=== PATIENT | male | born 1940 | race Caucasian/White ===

== ENCOUNTER 2020-05-14 11:36 | Inpatient (IN) | payer MEDICARE, OTHER ==
[2020-05-14 15:40] LABS: ALBUMIN 3.3 g/dL (3.4-5.0); BILIRUBIN - TOTAL 0.9 mg/dL (0.2-1.0); BUN/CREAT RATIO (CALC) 17.2 RATIO; CREATININE 0.87 mg/dL (0.67-1.17); GLOBULIN (CALCULATION) 4.8 g/dL; POTASSIUM 4.1 mmol/L (3.5-5.1); TOTAL PROTEIN 8.1 g/dL (6.4-8.2)
[2020-05-14] MEDS ORDERED: PROSCAR5 MG PO (16:10)
[2020-05-14] MEDS ORDERED: CARTIA XT240 MG PO (16:11)
[2020-05-14] MEDS ORDERED: ZOLOFT100 MG PO (16:11)
[2020-05-14] MEDS ORDERED: LASIX40 MG PO (16:12)
[2020-05-14] MEDS ORDERED: K-DUR20 MEQ PO (16:12)
[2020-05-14] MEDS ORDERED: ASPIRIN EC81 MG PO (16:13)
[2020-05-14] MEDS ORDERED: METFORMIN HCL500 MG PO (16:15)
[2020-05-14] MEDS ORDERED: FLOMAX0.4 MG PO (16:16)
[2020-05-14] MEDS ORDERED: PROTONIX40 MG PO (16:18)
[2020-05-14] MEDS ORDERED: MAG-OXIDE 400M400 MG PO (16:19)
[2020-05-14] MEDS ORDERED: VITAMIN E400 UNIT PO (16:20)
[2020-05-14] MEDS ORDERED: VITAMIN B-121000 MC1 PO (16:20)
[2020-05-14] MEDS ORDERED: VENTOLIN (2.5 MG/3 M INH (16:21)
[2020-05-14] MEDS ORDERED: TEMAZEPAM30 MG PO (16:23)
[2020-05-14] MEDS ORDERED: NOVOLOG VI100 UNIT/1 SC (16:49)
[2020-05-14] MEDS ORDERED: UROCIT-K10 MEQ PO (16:52)
[2020-05-16 08:11] LABS: BASOPHIL 0.2 % (0-2); EOSINOPHIL 0.2 % (0-7); HCT 36.3 % (42.0-52.0); HGB 11.5 g/dl (13.2-18.0); LYMPHOCYTE 15.6 % (15-48); MCH 31.3 pg (25.0-31.0); MCHC 31.7 g/dL (32.0-36.0); MCV 98.9 fL (78.0-100.0); MONOCYTE 9.9 % (0-12); NEUTROPHIL 73.3 % (41-80); NRBC 0; PLT 309 K/uL (150-400); RBC 3.67 M/uL (4.70-6.00); RDW 15.9 % (11.5-14.0); WBC 9.1 K/uL (4.0-10.5)
[2020-05-16 08:33] LABS: BUN/CREAT RATIO (CALC) 23.2 RATIO; CREATININE 0.82 mg/dL (0.67-1.17); POTASSIUM 3.6 mmol/L (3.5-5.1)
[2020-05-17 01:37] LABS: BASOPHIL 0.2 % (0-2); EOSINOPHIL 0 % (0-7); HCT 36.5 % (42.0-52.0); HGB 11.6 g/dl (13.2-18.0); LYMPHOCYTE 14.7 % (15-48); MCH 31.1 pg (25.0-31.0); MCHC 31.8 g/dL (32.0-36.0); MCV 97.9 fL (78.0-100.0); MONOCYTE 10.6 % (0-12); NEUTROPHIL 72.7 % (41-80); NRBC 0; PLT 350 K/uL (150-400); RBC 3.73 M/uL (4.70-6.00); RDW 15.9 % (11.5-14.0)
[2020-05-17 01:52] LABS: BUN/CREAT RATIO (CALC) 21.5 RATIO; CREATININE 1.3 mg/dL (0.67-1.17); MAGNESIUM 1.8 mg/dL (1.8-2.4)
[2020-05-18 04:42] LABS: BASOPHIL 0.4 % (0-2); EOSINOPHIL 0.2 % (0-7); HCT 40.1 % (42.0-52.0); HGB 12.8 g/dl (13.2-18.0); MCH 31.2 pg (25.0-31.0); MCHC 31.9 g/dL (32.0-36.0); MCV 97.8 fL (78.0-100.0); MONOCYTE 12.3 % (0-12); MPV 8.9 fL (6.0-9.5); NEUTROPHIL 67.7 % (41-80); NRBC 0; PLT 385 K/uL (150-400); RDW 15.7 % (11.5-14.0); WBC 9.7 K/uL (4.0-10.5)
[2020-05-18 04:58] LABS: BUN/CREAT RATIO (CALC) 27.8 RATIO; CREATININE 1.15 mg/dL (0.67-1.17); POTASSIUM 3.8 mmol/L (3.5-5.1)
--- NOTE | 2020-05-18 15:26 | NUR ---
05/18/20 Mr. Syed lives at home with his spouse. He is followed by [facility]. He has 02, lift chair, electric w/c, rollator, and [id number] seat. M/M Yahaira discussed placement vs returning home with HH. They elected to go to [facility] for short term igor. [facility] accepted patient today. Report given to MS RADHA Bautista - Please call report to: [phone] and fax DS to: [phone]. Spouse will bring portable 02 and transport.
[2020-05-18] MEDS ORDERED: HUMULIN R100 UNIT/2 SC (15:36)
[2020-05-18] MEDS ORDERED: PROVENTIL HFA6.7 GM INH (15:36)
[2020-05-18] MEDS ORDERED: ATROVENT HFA12.9 GM INH (15:36)
[2020-05-18] MEDS ORDERED: MUCINEX1200 MG PO (15:50)
[2020-05-18] MEDS ORDERED: DECADRON6 MG PO (15:50)
[2020-05-18] MEDS ORDERED: CEFDINIR300 MG PO (15:50)
[2020-05-18] MEDS ORDERED: LASIX40 MG PO (15:53)
[2020-05-18] MEDS ORDERED: DULERA 200 MCG8.8 GM INH (16:17)
[2020-05-18] MEDS ORDERED: DECADRON4 MG PO (16:17)
== END 2020-05-18 18:25 | DRG 177 ==
LOC: FER 11:36 → FMS 14:39
PROVIDERS: Internal Medicine; ADMIT Internal Medicine
PROC: 8E0ZXY6 Isolation (ICD-10-PCS; principal; 2020-05-14)
DX: U07.1 COVID-19 (principal); J12.82 Pneumonia due to coronavirus disease 2019; I50.31 Acute diastolic (congestive) heart failure; J96.21 Acute and chronic respiratory failure with hypoxia; J18.9 Pneumonia, unspecified organism; J44.0 Chronic obstructive pulmonary disease with (acute) lower respiratory infection; I48.20 Chronic atrial fibrillation, unspecified; G47.33 Obstructive sleep apnea (adult) (pediatric); M19.90 Unspecified osteoarthritis, unspecified site; G89.29 Other chronic pain; M54.9 Dorsalgia, unspecified; N40.0 Benign prostatic hyperplasia without lower urinary tract symptoms; Z85.528 Personal history of other malignant neoplasm of kidney; E78.5 Hyperlipidemia, unspecified; I11.0 Hypertensive heart disease with heart failure; E11.40 Type 2 diabetes mellitus with diabetic neuropathy, unspecified; E66.01 Morbid (severe) obesity due to excess calories; Z95.5 Presence of coronary angioplasty implant and graft; Z96.653 Presence of artificial knee joint, bilateral; Z87.891 Personal history of nicotine dependence; Z88.0 Allergy status to penicillin; Z79.899 Other long term (current) drug therapy; Z79.82 Long term (current) use of aspirin; Z79.84 Long term (current) use of oral hypoglycemic drugs; Z88.8 Allergy status to other drugs, medicaments and biological substances
CPT/HCPCS: 36415; 71045; 80048; 80053; 80202; 82962; 83735; 83880; 85025; 87040; 93971; 94640; 94760; 97110; 97116; 97162; 97166; 97530-GP; 97535; J0692; J1650; J1940; J7512; U0002

== ENCOUNTER 2020-06-01 12:29 | Inpatient (IN) | payer MEDICARE, OTHER ==
[~2020-06-01 12:29] MED LIST: ASPIRIN EC81 MG PO; ATROVENT HFA12.9 GM INH; CARTIA XT240 MG PO; CEFDINIR300 MG PO; DECADRON4 MG PO; DECADRON6 MG PO; DULERA 200 MCG8.8 GM INH; FLOMAX0.4 MG PO; HUMULIN R100 UNIT/2 SC; K-DUR20 MEQ PO; LASIX40 MG PO; MAG-OXIDE 400M400 MG PO; METFORMIN HCL500 MG PO; MUCINEX1200 MG PO; NOVOLOG VI100 UNIT/1 SC; PROSCAR5 MG PO; PROTONIX40 MG PO; PROVENTIL HFA6.7 GM INH; TEMAZEPAM30 MG PO; UROCIT-K10 MEQ PO; VENTOLIN (2.5 MG/3 M INH; VITAMIN B-121000 MC1 PO; VITAMIN E400 UNIT PO; ZOLOFT100 MG PO
[2020-06-01 13:27] LABS: BASOPHIL 0.3 % (0-2); EOSINOPHIL 1.3 % (0-7); HCT 36.3 % (42.0-52.0); HGB 11.5 g/dl (13.2-18.0); LYMPHOCYTE 9.1 % (15-48); MCH 31.1 pg (25.0-31.0); MCHC 31.7 g/dL (32.0-36.0); MCV 98.1 fL (78.0-100.0); MONOCYTE 8.6 % (0-12); MPV 9.9 fL (6.0-9.5); NEUTROPHIL 79.5 % (41-80); NRBC 0; PLT 199 K/uL (150-400); RDW 15.6 % (11.5-14.0); WBC 11.5 K/uL (4.0-10.5)
[2020-06-01 13:45] LABS: ALBUMIN 2.8 g/dL (3.4-5.0); BILIRUBIN - TOTAL 0.7 mg/dL (0.2-1.0); BUN/CREAT RATIO (CALC) 20.9 RATIO; CREATININE 0.91 mg/dL (0.67-1.17); GLOBULIN (CALCULATION) 4.1 g/dL; POTASSIUM 4.3 mmol/L (3.5-5.1); TOTAL PROTEIN 6.9 g/dL (6.4-8.2)
[2020-06-01 13:53] LABS: CORONAVIRUS 2019 SARS-COV-2 POSITIVE (NEGATIVE)
[2020-06-01 14:38] LABS: INFLUENZA A NAA NEGATIVE (NEGATIVE)
[2020-06-01 17:35] LABS: LACTIC ACID 0.8 mmol/L (0.4-1.9)
[2020-06-01 18:42] LABS: BILIRUBIN NEGATIVE (NEGATIVE); BLOOD NEGATIVE Ery/uL (NEGATIVE); CLARITY CLEAR (CLEAR); COLOR YELLOW (YELLOW); GLUCOSE (U) NORMAL (NORMAL); LEUKOCYTES NEGATIVE Leu/uL (NEGATIVE); NITRITE NEGATIVE (NEGATIVE); PROTEIN NEGATIVE (NEGATIVE); SPECIFIC GRAVITY 1.015 (1.001-1.030); UROBILINOGEN 0.2 mg/dL (0.2-1.0)
[2020-06-01 18:58] LABS: URINARY WBC RARE
[2020-06-01 18:59] LABS: SQUAMOUS EPITHELIAL CELLS RARE
[2020-06-01] MEDS ORDERED: BUSPIRONE HCL15 MG PO (21:02)
[2020-06-01] MEDS ORDERED: BACLOFEN 10MG T10 MG PO (21:03)
[2020-06-01] MEDS ORDERED: PERCOCET 10-321 EACH PO (21:04)
[2020-06-01] MEDS ORDERED: TEMAZEPAM30 MG PO (21:05)
[2020-06-01] MEDS ORDERED: VENTOLIN HFA IN18 GM INH (21:05)
[2020-06-01] MEDS ORDERED: ZOLOFT100 MG PO (21:07)
[2020-06-01] MEDS ORDERED: VITAMIN E400 UNI4 PO (21:07)
[2020-06-01] MEDS ORDERED: ASPIRIN EC81 MG PO (21:08)
[2020-06-01] MEDS ORDERED: PROSCAR5 MG PO (21:08)
[2020-06-01] MEDS ORDERED: PROTONIX 40MG T40 MG PO (21:09)
[2020-06-01] MEDS ORDERED: K-DUR20 MEQ PO (21:11)
[2020-06-01] MEDS ORDERED: LASIX40 MG PO (21:11)
[2020-06-01] MEDS ORDERED: FLOMAX0.4 MG PO (21:12)
[2020-06-01] MEDS ORDERED: PRADAXA150 MG PO (21:12)
[2020-06-01] MEDS ORDERED: METFORMIN HCL500 MG PO (21:14)
[2020-06-01] MEDS ORDERED: CARTIA XT240 MG PO (21:16)
[2020-06-01 21:46] LABS: BASOPHIL 0.2 % (0-2); EOSINOPHIL 0.2 % (0-7); HCT 37.7 % (42.0-52.0); LYMPHOCYTE 4.3 % (15-48); MCH 31.3 pg (25.0-31.0); MCHC 31.8 g/dL (32.0-36.0); MCV 98.2 fL (78.0-100.0); MONOCYTE 1.6 % (0-12); MPV 9.9 fL (6.0-9.5); NEUTROPHIL 92.3 % (41-80); NRBC 0; PLT 214 K/uL (150-400); RBC 3.84 M/uL (4.70-6.00); RDW 15.6 % (11.5-14.0); WBC 12.9 K/uL (4.0-10.5)
[2020-06-01 22:03] LABS: ALBUMIN 2.9 g/dL (3.4-5.0); BILIRUBIN - TOTAL 0.7 mg/dL (0.2-1.0); BUN/CREAT RATIO (CALC) 19.5 RATIO; CREATININE 1.18 mg/dL (0.67-1.17); GLOBULIN (CALCULATION) 4.1 g/dL; POTASSIUM 5.2 mmol/L (3.5-5.1)
--- NOTE | 2020-06-01 22:22 | NUR ---
PT ADJITATED AT THIS TIME, CALLING OUT TO NURSES STATION BERRY GROWER ANSWERS PHONE AND PATIENT YELLING IN HER EAR WANTING TO KNOW HER NAME, PT REMOVING MASK TO TALK AND OXYGEN SATS DROP, RT WENT IN TO ASSIST WITH PT DAUGHTER WORKS ON [employer] AND CAME TO ASSIST AND TALK TO PATIENT. WILL CONTINUE TO MONITOR, PT SATS AND HR STABLE AT THIS TIME
[2020-06-02 04:32] LABS: BASOPHIL 0.3 % (0-2); EOSINOPHIL 0.3 % (0-7); HCT 34.2 % (42.0-52.0); HGB 10.9 g/dl (13.2-18.0); LYMPHOCYTE 9.9 % (15-48); MCH 31.1 pg (25.0-31.0); MCHC 31.9 g/dL (32.0-36.0); MCV 97.4 fL (78.0-100.0); MONOCYTE 2.3 % (0-12); NEUTROPHIL 85.5 % (41-80); NRBC 0; PLT 189 K/uL (150-400); RBC 3.51 M/uL (4.70-6.00); RDW 15.3 % (11.5-14.0)
[2020-06-02 05:11] LABS: IRON % SATURATION 10.8 %SAT (20-50)
[2020-06-02 05:38] LABS: BUN 23 mg/dL (7-18); BUN/CREAT RATIO (CALC) 20.5 RATIO; CHLORIDE 101 mmol/L (98-107); CO2 (BICARBONATE) 28 mmol/L (21-32); CREATININE 1.12 mg/dL (0.67-1.17); GLUCOSE 214 mg/dL (74-106); MAGNESIUM 2.4 mg/dL (1.8-2.4); PHOSPHORUS 3.9 mg/dL (2.6-4.7); POTASSIUM 3.9 mmol/L (3.5-5.1)
[2020-06-02 05:39] LABS: C-REACTIVE PROTEIN > 18.00 mg/dL (<=0.90)
--- NOTE | 2020-06-02 14:26 | NUR ---
06/02 Mr. Syed lives with his spouse. [facility] was notified of admission and transfer to [facility]. - Mr. Syed has home 02, lift chair, electric wc, rollator, and [id number].
== END 2020-06-02 14:30 | disposition other institution (70) | DRG 871 ==
LOC: FER 12:29 → FTCU 16:27
PROVIDERS: Emergency Medicine; ADMIT Internal Medicine
PROC: 8E0ZXY6 Isolation (ICD-10-PCS; principal; 2020-06-01)
PROC: XW033E5 Introduction of Remdesivir Anti-infective into Peripheral Vein, Percutaneous Approach, New Technology Group 5 (ICD-10-PCS; 2020-06-01)
PROC: 3E0333Z Introduction of Anti-inflammatory into Peripheral Vein, Percutaneous Approach (ICD-10-PCS; 2020-06-01)
DX: A41.89 Other specified sepsis (principal); U07.1 COVID-19; J12.82 Pneumonia due to coronavirus disease 2019; J96.21 Acute and chronic respiratory failure with hypoxia; I21.A1 Myocardial infarction type 2; I50.33 Acute on chronic diastolic (congestive) heart failure; I48.20 Chronic atrial fibrillation, unspecified; G47.33 Obstructive sleep apnea (adult) (pediatric); D50.9 Iron deficiency anemia, unspecified; N40.0 Benign prostatic hyperplasia without lower urinary tract symptoms; K21.9 Gastro-esophageal reflux disease without esophagitis; F32.9 Major depressive disorder, single episode, unspecified; I27.20 Pulmonary hypertension, unspecified; J84.10 Pulmonary fibrosis, unspecified; J43.9 Emphysema, unspecified; E78.5 Hyperlipidemia, unspecified; E11.42 Type 2 diabetes mellitus with diabetic polyneuropathy; Z96.653 Presence of artificial knee joint, bilateral; M19.90 Unspecified osteoarthritis, unspecified site; I25.10 Atherosclerotic heart disease of native coronary artery without angina pectoris; Z95.5 Presence of coronary angioplasty implant and graft; Z88.0 Allergy status to penicillin; Z98.890 Other specified postprocedural states; Z85.528 Personal history of other malignant neoplasm of kidney; Z87.891 Personal history of nicotine dependence
CPT/HCPCS: 36415; 36600; 71045; 71275; 80048; 80053; 81001; 82607; 82803; 83540; 83550; 83605; 83735; 83880; 84100; 84145; 84484; 85025; 85379; 86140; 87040; 93005; 94010; 94640; 94667; 94668; C9399; J1100; J1650; J2916; J3370; J3490; J7030; J7040; J7050; Q9967; U0002

== ENCOUNTER 2020-06-10 06:33 | Inpatient (IN) | payer MEDICARE, OTHER ==
[~2020-06-10 06:33] MED LIST changes: +BACLOFEN 10MG T10 MG PO; +BUSPIRONE HCL15 MG PO; +PERCOCET 10-321 EACH PO; +PRADAXA150 MG PO; +PROTONIX 40MG T40 MG PO; +VENTOLIN HFA IN18 GM INH; +VITAMIN E400 UNI4 PO
[2020-06-10 07:17] LABS: BASOPHIL 0.3 % (0-2); EOSINOPHIL 1.5 % (0-7); HGB 14.7 g/dl (13.2-18.0); LYMPHOCYTE 7.4 % (15-48); MCH 30.6 pg (25.0-31.0); MCV 95.8 fL (78.0-100.0); MONOCYTE 3.9 % (0-12); MPV 9.5 fL (6.0-9.5); NEUTROPHIL 84.8 % (41-80); NRBC 0; PLT 276 K/uL (150-400); RDW 15.6 % (11.5-14.0)
[2020-06-10 07:22] LABS: WBC 24.8 K/uL (4.0-10.5)
[2020-06-10 07:36] LABS: BILIRUBIN NEGATIVE (NEGATIVE); BLOOD NEGATIVE Ery/uL (NEGATIVE); CLARITY CLEAR (CLEAR); COLOR YELLOW (YELLOW); GLUCOSE (U) NORMAL (NORMAL); LEUKOCYTES NEGATIVE Leu/uL (NEGATIVE); NITRITE NEGATIVE (NEGATIVE); PROTEIN NEGATIVE (NEGATIVE); UROBILINOGEN 0.2 mg/dL (0.2-1.0); pH 5.5 (5.0-9.0)
[2020-06-10 07:37] LABS: ALBUMIN 3.2 g/dL (3.4-5.0); BILIRUBIN - TOTAL 0.6 mg/dL (0.2-1.0); BUN/CREAT RATIO (CALC) 36.8 RATIO; CREATININE 0.87 mg/dL (0.67-1.17); GLOBULIN (CALCULATION) 3.5 g/dL; TOTAL PROTEIN 6.7 g/dL (6.4-8.2)
[2020-06-10 10:10] LABS: CORONAVIRUS 2019 SARS-COV-2 POSITIVE (NEGATIVE); INFLUENZA A NAA NEGATIVE (NEGATIVE)
[2020-06-10] MEDS ORDERED: LOMOTIL 2.5-0.1 EACH PO (11:17)
[2020-06-10] MEDS ORDERED: ATARAX25 MG PO (13:57)
[2020-06-11 08:53] LABS: BASOPHIL 0.2 % (0-2); EOSINOPHIL 0 % (0-7); HCT 37.9 % (42.0-52.0); HGB 12.1 g/dl (13.2-18.0); LYMPHOCYTE 3.9 % (15-48); MCH 30.4 pg (25.0-31.0); MCHC 31.9 g/dL (32.0-36.0); MCV 95.2 fL (78.0-100.0); MONOCYTE 2.6 % (0-12); MPV 9.9 fL (6.0-9.5); NRBC 0; PLT 194 K/uL (150-400); RBC 3.98 M/uL (4.70-6.00); RDW 15.7 % (11.5-14.0)
[2020-06-11 09:11] LABS: BUN/CREAT RATIO (CALC) 38.2 RATIO; CREATININE 0.89 mg/dL (0.67-1.17); POTASSIUM 3.5 mmol/L (3.5-5.1)
[2020-06-11 09:18] LABS: MAGNESIUM 2.3 mg/dL (1.8-2.4)
--- NOTE | 2020-06-11 12:17 | NUR ---
PT LIVES WITH SPOUSE; HAS O2 NORMALLY AT 2 LITERS BUT PER H&P HE WAS RECENTLY HOSPITALIZED AT OUTSIDE FACILITY AND THEY RECENTLY INCREASED TO 4 LITERS; PT NOW IS INTUBATED PLEASE ADVISE WITH ANY D/C NEEDS PRIOR TO DISCHARGE
--- NOTE | 2020-06-11 16:43 | NUR ---
06[facility]11/20 [facility] was notified of admission via [employer] [facility] [employer].
[2020-06-12 03:56] LABS: BASOPHIL 0.2 % (0-2); EOSINOPHIL 0.1 % (0-7); HCT 38.7 % (42.0-52.0); HGB 12.2 g/dl (13.2-18.0); MCHC 31.5 g/dL (32.0-36.0); MCV 98.5 fL (78.0-100.0); MONOCYTE 3.1 % (0-12); NRBC 0; PLT 202 K/uL (150-400); RBC 3.93 M/uL (4.70-6.00); RDW 15.5 % (11.5-14.0); WBC 19.4 K/uL (4.0-10.5)
[2020-06-12 04:13] LABS: BUN/CREAT RATIO (CALC) 40.7 RATIO; CREATININE 0.86 mg/dL (0.67-1.17); MAGNESIUM 2.2 mg/dL (1.8-2.4); POTASSIUM 3.4 mmol/L (3.5-5.1)
[2020-06-13 04:33] LABS: BASOPHIL 0.3 % (0-2); EOSINOPHIL 0.2 % (0-7); HCT 38.8 % (42.0-52.0); HGB 12.5 g/dl (13.2-18.0); LYMPHOCYTE 4.5 % (15-48); MCH 32.1 pg (25.0-31.0); MCHC 32.2 g/dL (32.0-36.0); MCV 99.5 fL (78.0-100.0); MONOCYTE 3.4 % (0-12); MPV 10.2 fL (6.0-9.5); NEUTROPHIL 90.3 % (41-80); NRBC 0; PLT 221 K/uL (150-400); RDW 15.3 % (11.5-14.0); WBC 14.4 K/uL (4.0-10.5)
[2020-06-13 04:49] LABS: BUN/CREAT RATIO (CALC) 44.8 RATIO; CREATININE 0.87 mg/dL (0.67-1.17); MAGNESIUM 2.2 mg/dL (1.8-2.4); POTASSIUM 4.1 mmol/L (3.5-5.1)
[2020-06-14 05:09] LABS: BASOPHIL 0.4 % (0-2); EOSINOPHIL 0.1 % (0-7); HCT 41.2 % (42.0-52.0); HGB 13.1 g/dl (13.2-18.0); LYMPHOCYTE 3.8 % (15-48); MCH 30.6 pg (25.0-31.0); MCHC 31.8 g/dL (32.0-36.0); MCV 96.3 fL (78.0-100.0); MONOCYTE 4.9 % (0-12); MPV 9.8 fL (6.0-9.5); NEUTROPHIL 88.6 % (41-80); NRBC 0; PLT 238 K/uL (150-400); RBC 4.28 M/uL (4.70-6.00); RDW 14.9 % (11.5-14.0); WBC 11.6 K/uL (4.0-10.5)
[2020-06-14 05:23] LABS: BUN/CREAT RATIO (CALC) 47.4 RATIO; CREATININE 0.78 mg/dL (0.67-1.17); MAGNESIUM 2.1 mg/dL (1.8-2.4); POTASSIUM 3.6 mmol/L (3.5-5.1)
[2020-06-15 03:17] LABS: BASOPHIL 0.3 % (0-2); EOSINOPHIL 0.2 % (0-7); HCT 44.3 % (42.0-52.0); HGB 14.6 g/dl (13.2-18.0); LYMPHOCYTE 5.3 % (15-48); MCH 30.4 pg (25.0-31.0); MCV 92.3 fL (78.0-100.0); MONOCYTE 5.8 % (0-12); MPV 9.8 fL (6.0-9.5); NRBC 0; PLT 284 K/uL (150-400); RDW 14.5 % (11.5-14.0); WBC 11.7 K/uL (4.0-10.5)
[2020-06-15 03:39] LABS: ALBUMIN 2.6 g/dL (3.4-5.0); BILIRUBIN - TOTAL 1.1 mg/dL (0.2-1.0); BUN/CREAT RATIO (CALC) 43.5 RATIO; CREATININE 0.85 mg/dL (0.67-1.17); GLOBULIN (CALCULATION) 4.1 g/dL; PHOSPHORUS 1.6 mg/dL (2.6-4.7); POTASSIUM 3.2 mmol/L (3.5-5.1); TOTAL PROTEIN 6.7 g/dL (6.4-8.2)
--- NOTE | 2020-06-15 16:33 | NUR ---
06/15/20 Therapy recommendations were discussed with Ms. Syed. She wishes to discuss with her daughter re: SNF vs home with HH. Plans are for this social media intern to speak with Ms. Syed on 06/16/20.
[2020-06-16 03:50] LABS: BASOPHIL 0.5 % (0-2); EOSINOPHIL 0.4 % (0-7); HCT 43.1 % (42.0-52.0); HGB 13.9 g/dl (13.2-18.0); LYMPHOCYTE 5.3 % (15-48); MCH 30.5 pg (25.0-31.0); MCHC 32.3 g/dL (32.0-36.0); MCV 94.7 fL (78.0-100.0); MONOCYTE 3.7 % (0-12); NEUTROPHIL 87.8 % (41-80); NRBC 0; PLT 262 K/uL (150-400); RBC 4.55 M/uL (4.70-6.00); WBC 12.8 K/uL (4.0-10.5)
--- NOTE | 2020-06-16 09:45 | NUR ---
PT INSISTENT ON TRANSFERRING TO BEDSIDE COMMODE. THIS RN AND DIMENSION WAREHOUSE SUPERVISOR TRANSFERRING MAX ASSIST. PT RECEIVED 1" SKIN TEAR TO R HAND AFTER SITTING ON HAND. THIS RN CLEANSED SKIN TEAR WITH NS AND ALLEVYN DSG APPLIED. LEROY LUZ RN NOTIFIED
--- NOTE | 2020-06-16 15:10 | NUR ---
06/16/20 Ms. Syed has decided on SNF placement; they are unable to provide care at home. Her first choice is [facility] and [facility] the 2nd choice. A referral has been made to [facility].
--- NOTE | 2020-06-16 20:10 | NUR ---
PT WAS ON THE PHONE WITH FAMILY AT 1000 TO WHICH THE PT GOT VERY AGGITATED ADN MADE CLAIMS THAT HE WAS GOING TO KILL HIMSELF. PT CALLED TO PRIMARY RN AND EXPLAINED SITUATION. ESCALATED TO PAINT ROLLER ASSEMBLER, HAND BASEBALL SEWER AND TO . ROBBIN FOR A SITTER [place]RI[place] RN SAT WITH PATIENT UNTIL [address] BONE RULED THE PATIENT SAFE TO BE WITHOUT A SITTER
--- NOTE | 2020-06-17 10:14 | NUR ---
06/17 [facility] has accepted Mr. Syed for admission today. Spouse was informed. Please call report to: [phone] ask for the COVID Unit. Fax the DS to: . EMS transport will be needed. Report given to Dr. Romero and MS Tarsha RN.
[2020-06-17] MEDS ORDERED: LEVAQUIN750 MG PO (13:02)
[2020-06-17] MEDS ORDERED: SPIRIVA18 MCG INH (13:02)
[2020-06-17] MEDS ORDERED: DULERA 200 MCG8.8 GM INH (13:02)
[2020-06-17] MEDS ORDERED: DEXAMETHASONE 2M2 MG PO (13:02)
[2020-06-17] MEDS ORDERED: MUCINEX1200 MG PO (13:02)
[2020-06-17] MEDS ORDERED: LASIX40 MG PO (13:02)
[2020-06-17] MEDS ORDERED: K-DUR20 MEQ PO (13:02)
[2020-06-17] MEDS ORDERED: PROVENTIL HFA6.7 GM INH (13:28)
--- NOTE | 2020-06-17 16:04 | NUR ---
06/17/20 Mr. Syed agreed to a SNF / igor placement on 06/16. Today, he refused to be transported when EMS arrived. He was being exspansive and unreasonable in conversation. Recommendations were made for Ms. Syed to apply for emergency guardianship. Carol Ann at [facility] was informed that patient would not arrive today.
--- NOTE | 2020-06-17 17:06 | NUR ---
EMS CAME TO TAKE THE PATIENT TO THE REHAB FACILITY. PATIENT REFUSED TO GO TO THE REHAB FACILITY, STATED HE WAS GOING TO HIS "PATIO HOME," AND THAT HE WAS NOT GOING WITH EMS UNLESS THEY TOOK HIM TO HIS PATIO HOME. EXTENSIVE EDUCATION AND REASONING RELATED TO THE PATIENTS REHAB NEED HAD BEEN COMMUNICATED OVER THE LAST SEVERAL DAYS TO THE PATIENT. THE PATIENT EARLIER TODAY STATED THAT HE WAS GOING TO THE REHAB FACILITY IN ORDER TO "GET HIS STRENGTH BACK." WHILE ON THE PHONE WITH HIS . WHEN EMS ARRIVED THE PATIENT BECAME VERY AGITATED AND WAS REFUSING TO GO TO THE REHAB FACILITY. THE EMS WORKERS ESCALATED TO [facility] DIRECT[facility] SINCE THE PATIENT WAS REFUSING TO GO WITH THEM, THE PATIENT STATED THE CORRECT YEAR, HIS NAME, THE PRESIDENT AND THE MONTH, HOWEVER HE STATED THAT HE WAS IN [place], NOT [place]. THE PATIENT ALL DAY HAS BEEN HAVING "CONFUSED CONVERSATION" TALKING ABOUT BUGS AT THE REHAB FACILITY, LARGE AMOUNTS OF MONEY IN RELATION TO HIS FAMILY. THE DIETITIAN ASSISTANT DIRECTED THE EMS CREW THAT THE PATIENT WAS MENTALLY ABLE TO MAKE HIS OWN DECISIONS AND THE PATIENT SIGNED THE REFUSAL FORM.
--- NOTE | 2020-06-17 17:32 | NUR ---
CAREN WITH SOCIAL WORK AWARE THAT PATIENT REFUSED TRANSPORT TO THE REHAB FACILITY. DR BONE ALSO NOTIFIED, PATIENT'S IV HAD ALREADY BEEN REMOVED, DR BONE SAID IT WAS OK TO LEAVE THE PATIENTS IV OUT. PLAN FROM HERE IS FOR TO ATTEMPT TO OBTAIN EMERGENCY GUARDIANSHIP.
--- NOTE | 2020-06-17 17:33 | NUR ---
POLICE ARRIVED TO UNIT, PATIENT HAD CALLED POLICE FROM HIS ROOM. PATIENT HAD DEMANDED HIS CELLPHONE, AND WAS TRYING TO CALL FAMILY. PATIENTS CELL PHONE SERVICE WAS DISCONTINUED BY HIS FAMILY, SO THE ONLY CALLS THAT CAN BE MADE ARE TO 911. PATIENT INSTRUCTED TO PLEASE NOT CALL 911, THAT HE IS IN THE HOSPITAL AND SAFE. POLICE RESPONDED TO PATIENT CALL, POLICE SPOKE WITH PATIENT, POLICE REPORTED TO NURSING STAFF TO CALL IF WE HAD ANY ISSUES.
[2020-06-18 04:25] LABS: BASOPHIL 0.3 % (0-2); EOSINOPHIL 0.6 % (0-7); HGB 14.6 g/dl (13.2-18.0); LYMPHOCYTE 13.3 % (15-48); MCH 30.2 pg (25.0-31.0); MCHC 32.4 g/dL (32.0-36.0); MCV 93.2 fL (78.0-100.0); MONOCYTE 5.2 % (0-12); MPV 9.9 fL (6.0-9.5); NEUTROPHIL 76.4 % (41-80); NRBC 0; PLT 279 K/uL (150-400); RBC 4.83 M/uL (4.70-6.00); RDW 14.8 % (11.5-14.0)
[2020-06-18 04:27] LABS: WBC 17.8 K/uL (4.0-10.5)
[2020-06-18 04:58] LABS: ALBUMIN 2.9 g/dL (3.4-5.0); BILIRUBIN - TOTAL 0.7 mg/dL (0.2-1.0); BUN/CREAT RATIO (CALC) 72.2 RATIO; CREATININE 0.54 mg/dL (0.67-1.17); GLOBULIN (CALCULATION) 3.2 g/dL; MAGNESIUM 2.1 mg/dL (1.8-2.4); PHOSPHORUS 2.1 mg/dL (2.6-4.7); POTASSIUM 3.3 mmol/L (3.5-5.1); TOTAL PROTEIN 6.1 g/dL (6.4-8.2)
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
--- NOTE | 2020-06-18 09:55 | NUR ---
PATIENT REMOVED SCD'S. TOLD SITTER TO GET OUT OF HIS ROOM. "IM GETTING MY CLOTHES ON AND IF I HAVE TO JAYWALK IM GETTING OUT OF HERE"
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
--- NOTE | 2020-06-18 16:26 | NUR ---
PATIENT ATTEMPTING TO GET OUT CHAIR, IN CLOSET STATES HE IS LEAVING. GRABBED GAIT BELT AND STATES "YOUR GONNA POP UP OUT OF THE CHAIR LIKE A MOUSE AND IM GOING TO DEFEND MYSELF. COME AT YOUR OWN RISK" PATIENT TOOK HIS OXYGEN OFF THREW IN FLOOR, ATTEMPTED TO STAND UP IN WIHTOUT ASSIST. I STOOD UP PATIENT PUT GAIT BELT IN AIR ATTEMPTING TO SWING AT NURSING. NURSING GRABBED GAIT BELT AND TOOK FROM PATIENT WELL OTHER ITEMS IN ROOM. PT DID GET SMALL SKIN TEAR TO RIGHT LOWER ARM FROM TAKING GAIT BELT. CORPORATE TUTOR IN AT BEDSIDE. STATES HE IS GOING TO [facility] ALL.
--- NOTE | 2020-06-18 16:40 | NUR ---
REFUSING TO PUT OXYGEN BACK ON. STATES "YOUR FILTHY" "DONT ACT LIKE YOU CARE"
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
--- NOTE | 2020-06-18 18:05 | NUR ---
PATIENT REQUESTED TO GET UP TO THE BEDSIDE COMMODE. PATIENT REQUIRED 3 STAFF MEMBERS FOR TRANSFER FROM THE [facility] TO THE [facility]. PATIENT WAS TOTAL ASSIST AND COULD NOT STAND ON HIS OWN OR SUPPORT HIS OWN WEIGHT WHEN STANDING. WALKER AND GAIT BELT, ALONG WITH 3 STAFF MEMBERS USED TO TRANSFER PATIENT TO AND FROM [facility].
--- NOTE | 2020-06-19 10:15 | NUR ---
WORKERS [employer]/daycare provider, contacted [facility] about patient's possible admission. . Per Mallory, from [facility], they cannot admit paient because his labs still show elevated white count, he still requires oxygen per info sent and he tested positive for COVID. Patient can be admitted to [facility] if even if he test positive should labs be normal and oxygen use is reduced..
[2020-06-19 11:10] LABS: BASOPHIL 0.3 % (0-2); EOSINOPHIL 2.2 % (0-7); HCT 41.6 % (42.0-52.0); HGB 13.6 g/dl (13.2-18.0); LYMPHOCYTE 6.5 % (15-48); MCH 30.6 pg (25.0-31.0); MCHC 32.7 g/dL (32.0-36.0); MCV 93.7 fL (78.0-100.0); MONOCYTE 3.7 % (0-12); MPV 9.8 fL (6.0-9.5); NRBC 0; PLT 205 K/uL (150-400); RBC 4.44 M/uL (4.70-6.00); RDW 14.8 % (11.5-14.0); WBC 14.5 K/uL (4.0-10.5)
[2020-06-19 11:35] LABS: ALBUMIN 2.5 g/dL (3.4-5.0); BILIRUBIN - TOTAL 0.6 mg/dL (0.2-1.0); BUN/CREAT RATIO (CALC) 39.5 RATIO; CREATININE 0.76 mg/dL (0.67-1.17); GLOBULIN (CALCULATION) 3.3 g/dL; MAGNESIUM 2.2 mg/dL (1.8-2.4); PHOSPHORUS 2.3 mg/dL (2.6-4.7); POTASSIUM 3.8 mmol/L (3.5-5.1); TOTAL PROTEIN 5.8 g/dL (6.4-8.2)
[2020-06-19 12:21] LABS: BILIRUBIN NEGATIVE (NEGATIVE); BLOOD TRACE-INTACT Ery/uL (NEGATIVE); CLARITY CLEAR (CLEAR); COLOR YELLOW (YELLOW); GLUCOSE (U) TRACE mg/dL (NORMAL); LEUKOCYTES TRACE Leu/uL (NEGATIVE); NITRITE NEGATIVE (NEGATIVE); PROTEIN TRACE (LOW) mg/dL (NEGATIVE); UROBILINOGEN 0.2 mg/dL (0.2-1.0)
[2020-06-19 12:27] LABS: BACTERIA TRACE; URINARY RBC RARE; URINARY WBC RARE; YEAST PRESENT
--- NOTE | 2020-06-19 12:48 | NUR ---
DOUGLAS LEWIS AT [facility]. THEY CANNOT ACCEPT PATIENT AT THIS TIME DUE TO HIM HAVING 1:1 SITTER
--- NOTE | 2020-06-20 05:26 | NUR ---
PT IS COMBATIVE, YELLING AT STAFF, REFUSING TO PUT HIS OXYGEN ON. PT SAYS HE HAS TO GO TO THE BATHROOM BUT CALLS STAFF IGNORANT AND OTHER NAMES WHEN STAFF TRYS TO HELP. PT CAN BE HEARD YELLING DOWN THE GAMEZ WAKING OTHER PATIENTS. PT TELLS STAFF TO GET OUT OF ROOM IN A COMBATIVE MANNER THEN YELLS AT STAFF TO COME BACK TO ANSWER HIS QUESTIONS AND NEEDS BUT STILL REFUSES HELP OR ANY ANSWERS TO HIS QUESTIONS
--- NOTE | 2020-06-20 06:11 | NUR ---
PT REFUSING PULSE OX. AID STANDIN GBY FOR PT CONTINUING TO TAKE OFF O2
[2020-06-20 09:08] LABS: BASOPHIL 0.4 % (0-2); EOSINOPHIL 2.4 % (0-7); HCT 45.5 % (42.0-52.0); HGB 14.5 g/dl (13.2-18.0); MCH 30.2 pg (25.0-31.0); MCHC 31.9 g/dL (32.0-36.0); MCV 94.8 fL (78.0-100.0); MONOCYTE 3.2 % (0-12); NEUTROPHIL 82.6 % (41-80); NRBC 0; PLT 210 K/uL (150-400); RDW 14.8 % (11.5-14.0); WBC 14.8 K/uL (4.0-10.5)
[2020-06-20 09:30] LABS: BUN/CREAT RATIO (CALC) 32.4 RATIO; CREATININE 0.68 mg/dL (0.67-1.17)
--- NOTE | 2020-06-20 11:55 | NUR ---
Nathalie, Pathology Laboratory Aides Teacher, at [facility] contacted HADOOP SOFTWARE ENGINEER. (Her direct line is [phone] M - F) Direct line to intake is [phone]. Explained patient is off 1:1 and ask if they wanted info faxed. Nathalie ask is he is is own person. Explained patient's is applying for guardianship. She states that needed to obtain guardianship before they would reconsider patient for admission. When guardianship is settled, Nathalie stated they would reasses patient for admission. All paperwork will have to be resumitted.
[2020-06-21 04:39] LABS: BASOPHIL 0.8 % (0-2); EOSINOPHIL 2.1 % (0-7); HCT 42.5 % (42.0-52.0); HGB 13.1 g/dl (13.2-18.0); LYMPHOCYTE 7.5 % (15-48); MCH 30.8 pg (25.0-31.0); MCHC 30.8 g/dL (32.0-36.0); MCV 99.8 fL (78.0-100.0); MONOCYTE 3.8 % (0-12); MPV 10.1 fL (6.0-9.5); NEUTROPHIL 83.9 % (41-80); NRBC 0; PLT 159 K/uL (150-400); RBC 4.26 M/uL (4.70-6.00); RDW 15.5 % (11.5-14.0); WBC 14.6 K/uL (4.0-10.5)
[2020-06-21 05:00] LABS: CREATININE 0.88 mg/dL (0.67-1.17)
[2020-06-21 05:01] LABS: POTASSIUM 4.7 mmol/L (3.5-5.1)
[2020-06-21 05:35] LABS: MAGNESIUM 1.7 mg/dL (1.8-2.4)
--- NOTE | 2020-06-21 12:59 | NUR ---
06/21/20 [phone][facility] has declined to accept Mr. Syed; medically not stable, too sick, and pt has not displayed behaviors in the last 24 hours.
--- NOTE | 2020-06-22 17:35 | NUR ---
06/22/20 Ms. Syed reports to have a Guardianship Hearing on 06/23/20 at 1:30. - A message was left for [facility] Admission Coordinator to return a call to this nursing home social worker.
--- NOTE | 2020-06-23 14:21 | NUR ---
06/23 Emergency guardianship has been awarded to Radha Margi Syed, spouse. - [facility] accepted Mr[facility]ed. - Report given to MS RADHA Reed - Please call report to [phone] and fax DS to: [phone].
[2020-06-23] MEDS ORDERED: LEVAQUIN750 MG PO (14:41)
[2020-06-23] MEDS ORDERED: PERCOCET 10-321 EACH PO (15:27)
[2020-06-23] MEDS ORDERED: TEMAZEPAM30 MG PO (15:27)
[2020-06-23] MEDS ORDERED: MIRALAX17 GM PO (15:29)
[2020-06-23] MEDS ORDERED: BUSPIRONE HCL15 MG PO (15:29)
[2020-06-23] MEDS ORDERED: RISPERDAL 0.5M0.5 MG PO (15:29)
--- NOTE | 2020-06-23 18:42 | NUR ---
EMS HERE TO PICK PATIENT UP FOR TRANSPORT TO [facility] [place]. [facility] HERE WELL TO SERVE PAPERS TO PATIENT REGARDING EMERGENCY GUARDIANSHIP FILED BY FAMILY TODAY. PATIENT ALERT, ORIENTED TO PERSON, CALM DURING TRANSFER. O2@4L/NC IN USE AT TIME OF TRANSFER. PATIENT'S HAD CALLED AND WAS NOTIFIED OF EMS HERE TO OIL EXPLORATION ENGINEER PATIENT
== END 2020-06-23 18:43 | DRG 871 ==
LOC: FER 06:33 → FICU 08:00 → FMS 06-14 12:02
PROVIDERS: Emergency Medicine; Internal Medicine; ADMIT Internal Medicine
PROC: 0BH17EZ Insertion of Endotracheal Airway into Trachea, Via Natural or Artificial Opening (ICD-10-PCS; principal; 2020-06-10)
PROC: 5A1945Z Respiratory Ventilation, 24-96 Consecutive Hours (ICD-10-PCS; 2020-06-10)
DX: A41.52 Sepsis due to Pseudomonas (principal); I21.4 Non-ST elevation (NSTEMI) myocardial infarction; U07.1 COVID-19; J12.82 Pneumonia due to coronavirus disease 2019; J15.1 Pneumonia due to Pseudomonas; J96.21 Acute and chronic respiratory failure with hypoxia; I50.33 Acute on chronic diastolic (congestive) heart failure; G93.41 Metabolic encephalopathy; I48.20 Chronic atrial fibrillation, unspecified; J44.1 Chronic obstructive pulmonary disease with (acute) exacerbation; J44.0 Chronic obstructive pulmonary disease with (acute) lower respiratory infection; N30.00 Acute cystitis without hematuria; R65.20 Severe sepsis without septic shock; I25.10 Atherosclerotic heart disease of native coronary artery without angina pectoris; F41.9 Anxiety disorder, unspecified; G47.33 Obstructive sleep apnea (adult) (pediatric); K59.00 Constipation, unspecified; B96.5 Pseudomonas (aeruginosa) (mallei) (pseudomallei) as the cause of diseases classified elsewhere; I11.0 Hypertensive heart disease with heart failure; K21.9 Gastro-esophageal reflux disease without esophagitis; M19.90 Unspecified osteoarthritis, unspecified site; G89.29 Other chronic pain; M54.9 Dorsalgia, unspecified; N40.0 Benign prostatic hyperplasia without lower urinary tract symptoms; E78.5 Hyperlipidemia, unspecified; E66.01 Morbid (severe) obesity due to excess calories; E11.40 Type 2 diabetes mellitus with diabetic neuropathy, unspecified; Z96.653 Presence of artificial knee joint, bilateral; Z79.01 Long term (current) use of anticoagulants; Z85.528 Personal history of other malignant neoplasm of kidney; Z88.0 Allergy status to penicillin; Z95.5 Presence of coronary angioplasty implant and graft; Z98.890 Other specified postprocedural states
CPT/HCPCS: 31500; 36415; 36600; 71045; 71275; 74018; 80048; 80053; 80202; 81001; 81003; 82150; 82553; 82803; 83605; 83735; 83880; 84100; 84145; 84484; 85025; 87040; 87070; 87076; 87077; 87088; 87186; 87205; 92523; 93005; 94002; 94640; 94660; 94668; 97110; 97162; 97166; 97530; 97530-GP; 97535; J0692; J0696; J1630; J1650; J1940; J1956; J2060; J2704; J2920; J3010; J3370; J3475; J3486; J7040; J7050; Q9967; U0002

== ENCOUNTER 2020-06-24 14:12 | Inpatient (IN) | payer MEDICARE, OTHER ==
[~2020-06-24 14:12] MED LIST changes: +ATARAX25 MG PO; +DEXAMETHASONE 2M2 MG PO; +LEVAQUIN750 MG PO; +LOMOTIL 2.5-0.1 EACH PO; +MIRALAX17 GM PO; +RISPERDAL 0.5M0.5 MG PO; +SPIRIVA18 MCG INH
[2020-06-24 15:32] LABS: BASOPHIL 0.5 % (0-2); EOSINOPHIL 1.1 % (0-7); HCT 35.6 % (42.0-52.0); HGB 11.7 g/dl (13.2-18.0); LYMPHOCYTE 9.3 % (15-48); MCHC 32.9 g/dL (32.0-36.0); MCV 94.4 fL (78.0-100.0); MPV 9.6 fL (6.0-9.5); NEUTROPHIL 76.1 % (41-80); NRBC 0; PLT 177 K/uL (150-400); RBC 3.77 M/uL (4.70-6.00); RDW 15.4 % (11.5-14.0); WBC 9.3 K/uL (4.0-10.5)
[2020-06-24 15:41] LABS: INR 1.61 (0.9-1.2); PROTHROMBIN TIME 18.2 SECONDS (11.4-13.6); PTT 53.6 SECONDS (22.2-34.7)
[2020-06-24 15:57] LABS: BILIRUBIN - TOTAL 0.8 mg/dL (0.2-1.0); BUN/CREAT RATIO (CALC) 14.3 RATIO; CREATININE 1.47 mg/dL (0.67-1.17); GLOBULIN (CALCULATION) 3.7 g/dL; MAGNESIUM 1.6 mg/dL (1.8-2.4); POTASSIUM 5.3 mmol/L (3.5-5.1); TOTAL PROTEIN 5.7 g/dL (6.4-8.2)
[2020-06-24 16:10] LABS: LACTIC ACID 3.2 mmol/L (0.4-1.9)
[2020-06-24 21:42] LABS: BUN/CREAT RATIO (CALC) 16.9 RATIO; CREATININE 1.42 mg/dL (0.67-1.17); POTASSIUM 4.5 mmol/L (3.5-5.1)
[2020-06-25] MEDS ORDERED: VENTOLIN (2.5 MG/3 M INH (00:08)
[2020-06-25] MEDS ORDERED: BACLOFEN 10MG T10 MG PO (00:09)
[2020-06-25] MEDS ORDERED: ASPIRIN EC81 MG PO (00:09)
[2020-06-25] MEDS ORDERED: BUSPIRONE HCL15 MG PO (00:10)
[2020-06-25] MEDS ORDERED: BREO ELLIPTA 11 EACH INH (00:10)
[2020-06-25] MEDS ORDERED: CALMOSEPTINE OI71 GM TOP (00:12)
[2020-06-25] MEDS ORDERED: DECADRON PO (00:12)
[2020-06-25] MEDS ORDERED: VISTARIL25 MG PO (00:13)
[2020-06-25] MEDS ORDERED: VITAMIN E200 UNI1 PO (00:13)
[2020-06-25] MEDS ORDERED: ZOLOFT100 MG PO (00:13)
[2020-06-25] MEDS ORDERED: CARDIZEM CD240 MG PO (00:14)
[2020-06-25] MEDS ORDERED: DULERA 200 MCG8.8 GM INH (00:14)
[2020-06-25] MEDS ORDERED: PROSCAR5 MG PO (00:14)
[2020-06-25] MEDS ORDERED: LASIX40 MG PO (00:15)
[2020-06-25] MEDS ORDERED: FLOMAX0.4 MG PO (00:15)
[2020-06-25] MEDS ORDERED: INCRUSE ELLI62.5 MCG INH (00:15)
[2020-06-25] MEDS ORDERED: LEVAQUIN750 MG PO (00:16)
[2020-06-25] MEDS ORDERED: GLUCOPHAGE XR500 MG PO (00:16)
[2020-06-25] MEDS ORDERED: MIRALAX17 GM PO (00:17)
[2020-06-25] MEDS ORDERED: PRILOSEC20 MG PO (00:17)
[2020-06-25] MEDS ORDERED: MUCINEX 600MG600 MG PO (00:17)
[2020-06-25] MEDS ORDERED: OXYCODONE HCL10 MG PO (00:18)
[2020-06-25] MEDS ORDERED: K-DUR20 MEQ PO (00:18)
[2020-06-25] MEDS ORDERED: RISPERDAL 0.5M0.5 MG PO (00:19)
[2020-06-25] MEDS ORDERED: PROTONIX 40MG T40 MG PO (00:19)
[2020-06-25] MEDS ORDERED: PRADAXA150 MG PO (00:19)
[2020-06-25] MEDS ORDERED: TEMAZEPAM PO (00:21)
[2020-06-25] MEDS ORDERED: SPIRIVA 18MCG18 MCG INH (00:21)
[2020-06-25] MEDS ORDERED: VENTOLIN HFA IN18 GM INH (00:22)
[2020-06-26 05:16] LABS: BASOPHIL 0.2 % (0-2); EOSINOPHIL 0 % (0-7); HCT 32.1 % (42.0-52.0); HGB 10.2 g/dl (13.2-18.0); LYMPHOCYTE 10.3 % (15-48); MCH 30.7 pg (25.0-31.0); MCHC 31.8 g/dL (32.0-36.0); MCV 96.7 fL (78.0-100.0); MONOCYTE 6.2 % (0-12); MPV 9.5 fL (6.0-9.5); NEUTROPHIL 80.5 % (41-80); NRBC 0; PLT 169 K/uL (150-400); RBC 3.32 M/uL (4.70-6.00); RDW 14.7 % (11.5-14.0); WBC 5.4 K/uL (4.0-10.5)
[2020-06-26 06:11] LABS: BUN/CREAT RATIO (CALC) 22.7 RATIO; CREATININE 0.97 mg/dL (0.67-1.17); POTASSIUM 4.4 mmol/L (3.5-5.1)
[2020-06-27 04:28] LABS: BASOPHIL 0.3 % (0-2); EOSINOPHIL 0 % (0-7); HCT 33.8 % (42.0-52.0); HGB 10.7 g/dl (13.2-18.0); LYMPHOCYTE 10.2 % (15-48); MCH 30.3 pg (25.0-31.0); MCHC 31.7 g/dL (32.0-36.0); MCV 95.8 fL (78.0-100.0); MONOCYTE 7.6 % (0-12); MPV 9.4 fL (6.0-9.5); NEUTROPHIL 80.2 % (41-80); NRBC 0; PLT 189 K/uL (150-400); RBC 3.53 M/uL (4.70-6.00); RDW 14.6 % (11.5-14.0); WBC 7.2 K/uL (4.0-10.5)
[2020-06-27 04:55] LABS: BUN/CREAT RATIO (CALC) 24.7 RATIO; CREATININE 0.89 mg/dL (0.67-1.17); POTASSIUM 3.7 mmol/L (3.5-5.1)
[2020-06-30 05:53] LABS: BASOPHIL 0.4 % (0-2); EOSINOPHIL 2.7 % (0-7); HCT 38.7 % (42.0-52.0); HGB 12.1 g/dl (13.2-18.0); LYMPHOCYTE 17.6 % (15-48); MCHC 31.3 g/dL (32.0-36.0); MONOCYTE 8.5 % (0-12); MPV 8.9 fL (6.0-9.5); NEUTROPHIL 68.5 % (41-80); NRBC 0; PLT 189 K/uL (150-400); RBC 4.03 M/uL (4.70-6.00); RDW 14.5 % (11.5-14.0); WBC 7.4 K/uL (4.0-10.5)
[2020-06-30 06:14] LABS: BUN/CREAT RATIO (CALC) 24.4 RATIO; CREATININE 0.78 mg/dL (0.67-1.17); POTASSIUM 3.8 mmol/L (3.5-5.1)
[2020-06-30] MEDS ORDERED: RISPERDAL 1MG TA1 MG PO (12:05)
[2020-06-30] MEDS ORDERED: SEROQUEL 25MG T25 MG PO (12:05)
[2020-06-30] MEDS ORDERED: LEVAQUIN750 MG PO (12:07)
[2020-06-30] MEDS ORDERED: BUMETANIDE2 MG PO ×3 (12:07→12:38)
[2020-06-30] MEDS ORDERED: PREDNISONE20 MG PO (12:07)
[2020-06-30] MEDS ORDERED: ADVAIR HFA 230-28 GM INH (12:38)
[2020-06-30] MEDS ORDERED: ATROVENT HFA12.9 GM INH (12:38)
== END 2020-06-30 18:35 | DRG 177 ==
LOC: FER 14:12 → FTCU 22:03 → FMS 06-29 15:26
PROVIDERS: Allergy & Immunology Allergy; Emergency Medicine; Hospitalist; ADMIT Internal Medicine
PROC: 8E0ZXY6 Isolation (ICD-10-PCS; principal; 2020-06-25)
DX: U07.1 COVID-19 (principal); J12.82 Pneumonia due to coronavirus disease 2019; I21.A1 Myocardial infarction type 2; J96.01 Acute respiratory failure with hypoxia; G93.41 Metabolic encephalopathy; J44.0 Chronic obstructive pulmonary disease with (acute) lower respiratory infection; F05 Delirium due to known physiological condition; I48.20 Chronic atrial fibrillation, unspecified; I13.0 Hypertensive heart and chronic kidney disease with heart failure and stage 1 through stage 4 chronic kidney disease, or unspecified chronic kidney disease; N17.9 Acute kidney failure, unspecified; J44.1 Chronic obstructive pulmonary disease with (acute) exacerbation; I48.91 Unspecified atrial fibrillation; Z66 Do not resuscitate; F03.90 Unspecified dementia, unspecified severity, without behavioral disturbance, psychotic disturbance, mood disturbance, and anxiety; E11.9 Type 2 diabetes mellitus without complications; F41.9 Anxiety disorder, unspecified; E78.5 Hyperlipidemia, unspecified; I50.9 Heart failure, unspecified; N40.0 Benign prostatic hyperplasia without lower urinary tract symptoms; N18.9 Chronic kidney disease, unspecified; K21.9 Gastro-esophageal reflux disease without esophagitis; G47.33 Obstructive sleep apnea (adult) (pediatric); E11.40 Type 2 diabetes mellitus with diabetic neuropathy, unspecified; E83.42 Hypomagnesemia; I25.10 Atherosclerotic heart disease of native coronary artery without angina pectoris; M10.9 Gout, unspecified; G89.29 Other chronic pain; M19.90 Unspecified osteoarthritis, unspecified site; M54.9 Dorsalgia, unspecified; Z96.653 Presence of artificial knee joint, bilateral; Z79.01 Long term (current) use of anticoagulants; Z88.0 Allergy status to penicillin; Z87.891 Personal history of nicotine dependence; Z85.528 Personal history of other malignant neoplasm of kidney; Z79.82 Long term (current) use of aspirin; Z95.5 Presence of coronary angioplasty implant and graft; Z98.890 Other specified postprocedural states; Z79.84 Long term (current) use of oral hypoglycemic drugs; Z79.899 Other long term (current) drug therapy
CPT/HCPCS: 36415; 36600; 71045; 71250; 80048; 80053; 82728; 82803; 82962; 83605; 83615; 83735; 83880; 84145; 84484; 85025; 85610; 85730; 87040; 93005; 94010; 94640; 97162; 97166; 97530-GP; 97535; G0378; J1940; J1956; J2060; J2920; J3360; J3475; J7030; J7512